=== PATIENT | female | born 2000 | race Caucasian/White ===

== ENCOUNTER 2021-07-15 16:51 | Emergency (ER) | payer SELFPAY ==
[~2021-07-15] VITALS: Ht 172.7 cm; Wt 50.3 kg
[2021-07-15 17:15] VITALS: BP 117/76
[2021-07-15] MEDS ORDERED: CEPH-588 PO (17:29)
[2021-07-15] MEDS ORDERED: CETI10SG1 PO (17:30)
[2021-07-15] MEDS ORDERED: DIPH25TA53 PO (17:30)
== END 2021-07-15 17:37 | disposition home or self-care (01) ==
LOC: MED 16:51
DX: S90.861A Insect bite (nonvenomous), right foot, initial encounter (principal); Z79.2 Long term (current) use of antibiotics; Z79.899 Other long term (current) drug therapy; W57.XXXA Bitten or stung by nonvenomous insect and other nonvenomous arthropods, initial encounter; Y92.89 Other specified places as the place of occurrence of the external cause; Y93.89 Activity, other specified; Y99.8 Other external cause status
CPT/HCPCS: 99283